=== PATIENT | male | born 1945 | race Caucasian/White ===

== ENCOUNTER 2017-01-25 09:29 | Day surgery (SDC) | payer MEDICARE, BC ==
--- NOTE | ~2017-01-25 | EGD ---
EGD REPORT [facility] [address] [place] [address] NAME: JAMIL MARCELO : [birth year] STATUS : REG [facility]#: [id number] AGE: 71 ADM/REG DATE : 01/25/17 MR#: [id number] REPORT SERV DATE: 01/25/17 DICTATED BY: HARISH SANON DATE: 01/25/17 REPORT STATUS : Draft [facility]ANS[facility]IBED BY: [facility] DATE: 01/25/17 [facility] Patient Name: Jamil Marcelo Date of : 1945 Attending MD: HARISH SANON MD Procedure Date No Time: 01/25/2017 Procedure: Colonoscopy Indications: Screening in patient at increased risk: Family history of 1st-degree relative with colorectal cancer Referring MD: Antoine Price Medicines: as per anesthesia Complications: No immediate complications. Procedure: Pre-Anesthesia Assessment: - ASA Grade Assessment: II - A patient with mild systemic disease. After I obtained informed consent, the scope was passed under direct vision. Throughout the procedure, the patient's blood pressure, pulse, and oxygen saturations were monitored continuously. The PCF [id number] was introduced through the anus and advanced to the cecum, identified by appendiceal orifice and ileocecal valve. The colonoscopy was performed without difficulty. The patient tolerated the procedure. The quality of the bowel preparation was fair. Findings: The perianal and digital rectal examinations were normal. Multiple small and large-mouthed diverticula were found in the sigmoid colon, in the descending colon and in the transverse colon. Impression: - Diverticulosis in the sigmoid colon, in the descending colon and in the transverse colon. Recommendation: - Repeat colonoscopy in 5 years for surveillance. Procedure Code(s): --- Professional --- 40931, Colonoscopy, flexible, proximal to splenic flexure; diagnostic, with or without collection of specimen(s) by brushing or washing, with or without colon decompression (separate procedure) Diagnosis Code(s): --- Professional --- K57.30, Diverticulosis of large intestine without perforation or abscess without bleeding Z12.11, Encounter for screening for malignant neoplasm EGD REPORT [facility] [address] [place] [address] [address] [facility] [address] NAME: JAMIL MARCELO : [birth year] STATUS : REG [place] PAT#: [id number] AGE: 71 ADM/REG DATE : 01/25/17 MR#: [id number] REPORT SERV DATE: 01/25/17 DICTATED BY: HARISH SANON. DATE: 01/25/17 REPORT STATUS : Draft TRANSCRIBED BY: [employer] DATE: 01/25/17 of colon Z80.0, Family history of malignant neoplasm of digestive organs CPT copyright 2013 [employer]. All rights reserved. The codes documented in this report are preliminary and upon radiator fitter review may be revised to meet current compliance requirements. HARISH SANON MD 01/25/2017 11:16 AM This report has been signed electronically. Number of Addenda: 0 Note Initiated On: 01/25/2017 10:53 AM Scope Withdrawal Time 0 hours 7 minutes 57 seconds [id number] [facility] HECT[facility] Daily [id number]
[~2017-01-25 09:29] MED LIST: DIOVAN HC1 PO
== END 2017-01-25 23:59 | disposition home or self-care (01) ==
LOC: DMU 09:29
PROVIDERS: Internal Medicine Gastroenterology
PROC: 0DJD8ZZ Inspection of Lower Intestinal Tract, Via Natural or Artificial Opening Endoscopic (ICD-10-PCS; principal; 2017-01-25 11:00)
DX: Z12.11 Encounter for screening for malignant neoplasm of colon (principal); K57.30 Diverticulosis of large intestine without perforation or abscess without bleeding; K57.90 Diverticulosis of intestine, part unspecified, without perforation or abscess without bleeding; I10 Essential (primary) hypertension; Z80.0 Family history of malignant neoplasm of digestive organs; Z87.891 Personal history of nicotine dependence; Z87.442 Personal history of urinary calculi; Z98.890 Other specified postprocedural states; Z79.899 Other long term (current) drug therapy